=== PATIENT | female | born 1990 | race Caucasian/White ===

== ENCOUNTER 2019-06-17 15:06 | Outpatient (CLI) | payer OTHER, SELFPAY ==
--- NOTE | ~2019-06-17 | US_ITS ---
EXAMINATION: US OB <=14 wk fetus w TV DATE: 06/17/2019 16:27 INDICATION: Positive test TECHNIQUE: Real-time transabdominal and transvaginal obstetric ultrasound. FINDINGS: No prior studies for comparison. The uterus measures 6.6 x 4.1 x 6.1 cm. There is an intrauterine gestational sac, with pole donta ntified. The crown rump length measures 0.58 cm, which correlates with a estimated gestational age o f 02/07/2020. heart tones are identified measuring 121 bpm. The ovaries are normal measuring 22.7 x 1.6 x 2.2 cm on the right and 2.9 x 2.2 x 2.4 cm on the left. IMPRESSION: 1. SL IUP with an EGA of 6 weeks, 3 days (EDC by current ultrasound of 02/07/2020). Reviewed, dictated and finalized at location A. IMPRESSION: 1. SL IUP with an EGA of 6 weeks, 3 days (EDC by current ultrasound of 02/07/20 20).
== END 2019-06-17 15:07 | disposition home or self-care (01) ==
PROVIDERS: PCP Student in an Organized Health Care Education/Training Program; Visit Provider Student in an Organized Health Care Education/Training Program
DX: Z32.01 Encounter for pregnancy test, result positive (principal); Z3A.08 8 weeks gestation of pregnancy
CPT/HCPCS: 76801; 76817